=== PATIENT | female | born 1985 | race Caucasian/White ===

== ENCOUNTER 2020-09-07 10:07 | Outpatient (CLI) | payer OTHER, SELFPAY ==
[2020-09-07 10:50] LABS: Hematocrit 43.6 % (37.0-47.0); Hemoglobin 14.8 g/dL (12.0-15.0); Mean Corpuscular HGB Conc 33.9 g/dl (32-36); Mean Corpuscular Hemoglobin 28.1 pg (26-34); Mean Corpuscular Volume 82.7 fl (80-100); Mean Platelet Volume 10.9 fl (7.4-10.4); Platelet Count Result 287 k/mm3 (150-375); Red Blood Count 5.27 M/mm3 (4.2-5.4); Red Cell Distribution Width 12.5 % (11.5-14.5); White Blood Count 7.4 K/mm3 (4.5-10.0)
[2020-09-07 11:16] LABS: Alanine Aminotransferase 20 U/L (4-35); Albumin Level 4.4 g/dL (3.5-5.1); Alkaline Phosphatase 74 U/L (38-126); Anion Gap 7 mmol/L (8-16); Aspartate Amino Transferase 22 U/L (14-36); Bilirubin,Total 0.6 mg/dL (0.2-1.3); Blood Urea Nitrogen 17 mg/dL (7-17); Calcium 8.7 mg/dL (8.4-10.2); Carbon Dioxide 27 mmol/L (22-30); Chloride 104 mmol/L (98-107); Cholesterol 175 mg/dL (0-200); Estimated Glomerular Filt Rate > 60; Glucose 94 mg/dL (65-105); HDL Direct 37 mg/dL; Potassium 4.2 mmol/L (3.4-5.0); Sodium 138 mmol/L (137-145); Triglycerides 78 mg/dL (<150)
[2020-09-07 11:26] LABS: LDL Cholesterol Direct 110 mg/dL
== END 2020-09-07 10:08 | disposition home or self-care (01) ==
PROVIDERS: PCP Family Medicine; Visit Provider Physician Assistant
DX: R53.83 Other fatigue (principal); Z13.220 Encounter for screening for lipoid disorders
CPT/HCPCS: 36415; 80053; 80061; 85027

== ENCOUNTER 2020-10-29 15:38 | Outpatient (CLI) | payer OTHER, SELFPAY ==
[2020-11-05 11:06] LABS: Progesterone 5.2 ng/mL (***)
== END 2020-10-29 15:39 | disposition home or self-care (01) ==
LOC: ANHLAB 15:39
PROVIDERS: PCP Family Medicine; Visit Provider Obstetrics & Gynecology
DX: N91.2 Amenorrhea, unspecified (principal)
CPT/HCPCS: 36415; 84144; 84702

== ENCOUNTER 2020-10-31 15:08 | Outpatient (CLI) | payer OTHER, SELFPAY | END 2020-10-31 15:09 | disposition home or self-care (01) | LOC: ANHLAB 15:10 | PROVIDERS: PCP Family Medicine; Visit Provider Obstetrics & Gynecology | DX: N91.2 Amenorrhea, unspecified (principal) | CPT/HCPCS: 36415; 84702 ==

== ENCOUNTER 2020-11-04 15:22 | Outpatient (CLI) | payer OTHER, SELFPAY ==
--- NOTE | ~2020-11-04 | US_ITS ---
EXAMINATION: US OB <=14 wk fetus w TV DATE: 11/04/2020 16:16 INDICATION: Threatened . First trimester. TECHNIQUE: Real-time transabdominal and transvaginal pelvic ultrasound was performed. COMPARISON: None. FINDINGS: TRANSABDOMINAL ULTRASOUND: The uterus measures 9.6 x 5.9 x 5.2 cm. TRANSVAGINAL ULTRASOUND: There is an intrauterine gestational sac. The crown rump length measur es 5 mm, which correlates with an estimated gestational age of 6 weeks and 2 day(s). heart frida on is not identified by M-mode Doppler. There is a 3 mm cyst in the endometrial complex. There is a s mall nabothian cyst in the cervix. The ovaries are not visualized. There is no free fluid in the pelv is. IMPRESSION: 1. Single intrauterine with estimated date of delivery of 06/29/2021. Lack of visible heart motion may sometimes be normal at this size. Serial beta-hCGs are recommended. Reviewed, dictated and finalized at location A. T ATTENDANT IMPRESSION: 1. Single intrauterine with estimated date of delivery of 06/29/2021. Lack of visible heart motion may sometimes be normal at this size. Seria l beta-hCGs are recommended.
== END 2020-11-04 15:23 | disposition home or self-care (01) ==
PROVIDERS: PCP Family Medicine; Visit Provider Obstetrics & Gynecology
DX: O20.0 Threatened abortion (principal); Z3A.00 Weeks of gestation of pregnancy not specified
CPT/HCPCS: 76801; 76817

== ENCOUNTER 2020-11-15 07:41 | Outpatient (RCR) | payer OTHER, SELFPAY ==
[2020-11-12 12:25] LABS: Beta HCG Quantitative 273.61 mIU/ML
[2020-11-15] MEDS: RHO(D) IMMUNE GLOBULIN 300 MCG SYRINGE IM (12:40)
== END 2020-11-15 07:42 | disposition home or self-care (01) ==
LOC: ANHLAB 07:41
PROVIDERS: PCP Family Medicine; Visit Provider Obstetrics & Gynecology
DX: N91.2 Amenorrhea, unspecified (principal)
CPT/HCPCS: 36415; 84702; 85461; 90384; 96372; J2790

== ENCOUNTER 2020-11-25 09:30 | Outpatient (RCR) | payer OTHER, SELFPAY ==
--- NOTE | 2020-08-27 17:54 | PTOPEVAL ---
PHYSICAL THERAPY EVALUATION AND PLAN OF CARE Thank you for referring Jennifer Chi to [facility].? The patient is scheduled to be seen for therapy 1x/week for 8 weeks. Please review, sign, date and return this plan of care ROLANDO. I agree with and certify that the following plan of care is medically necessary. Referring Physician Date Evaluation Diagnosis left exploratory arthroscopy Onset 04/30/2020 Subjective Information removed some adhesions Query Text:As Reported By Patient/ laterally, removed a fat pad Family laterally, but otherwise found no cause for pain. She reports that initial injury was 4 years ago and care was delayed and she has been limping for the last years. Believes that the experience of the surgery made the pain worse/aggravated symptoms. Jennifer reports that now her hip and her back hurt and she is less active and she feels overall less toned. Reports frequent episodes of the left knee giving out and now it is throbbing. Self Report Pain Assessment Left Knee(s) Reported Pain Level 3 Pain Description Aching Pain Frequency Chronic,Continuous Other Pain Description weak Lowest Pain Intensity 2 Greatest Pain Intensity 7 Pain Aggravating Factors Stair Climbing,Walking,Weight Bearing/Standing Pain Score Pain Score 3: Self Report Interventions Used Interventions Used By Clinicians Exercise,Heat Pain Relief Interventions Used By Ice Patient Lower Extremity Range of Motion Knee Range of Motion Right Knee Flexion Range of Motion - Active 121 Knee Extension Range of Motion - Active 0 Query Text: Left Knee Flexion Range of Motion - Active 111 Knee Extension Range of Motion - Active 0 Query Text: Lower Extremity Muscle Strength Testing Hip Strength Right Hip Flexion Strength 5 Normal Hip Extension Strength 4 Good Hip Abduction Strength 4+ Good + Left Hip Flexion Strength 4+ Good + Hip Extension Strength 3+ Fair + Hip Abduction Strength 3 Fair Knee Strength Right Knee Flexion Strength 5 Normal Knee Extension Strength 5 Normal Left Knee Flexion Strength 4+ Good + Knee Extension Strength
--- NOTE | 2020-10-03 10:49 | PTOPEVAL ---
PHYSICAL THERAPY PLAN OF CARE UPDATE AND PROGRESS REPORT Thank you for referring Dillon Chi to [facility].? The patient is scheduled to be seen for therapy? 1x/week for 5 weeks. Please review, sign, date and return this plan of care ROLANDO. I agree with and certify that the following plan of care is medically necessary. Referring Physician Date Progress Diagnosis left exploratory arthroscopy Onset 04/30/2020 Subjective Information dillon reports that pain Query Text:As Reported By Patient/ symptoms are really about the Family same and she continues to feel as though the left knee is more . She does note that there is improved function in stair climbing and she is feeling more capable to perform exercises than she has in several years. Self Report Pain Assessment Left Knee(s) Reported Pain Level 4 Pain Description Aching Pain Frequency Chronic,Continuous Other Pain Description 'feels kind of again' Lowest Pain Intensity 2 Greatest Pain Intensity 7 Pain Aggravating Factors Stair Climbing,Walking,Weight Bearing/Standing Pain Score Pain Score 4: Self Report Interventions Used Interventions Used By Clinicians Exercise Lower Extremity Muscle Strength Testing Hip Strength Right Hip Flexion Strength 5 Normal Hip Extension Strength 4+ Good + Hip Abduction Strength 5 Normal Left Hip Flexion Strength 5 Normal Hip Extension Strength 4 Good Hip Abduction Strength 4+ Good + Knee Strength Right Knee Flexion Strength 5 Normal Knee Extension Strength 5 Normal Left Knee Flexion Strength 5 Normal Knee Extension Strength 5 Normal Knee Strength Comments pain illicited in knee during MMT Posture Posture Supine Position Pelvis Posture (R) Iliac Crest Superior Weight Distribution Weight Shifted Right Leg Length Discrepancy right LE appears shorter than left Knee Posture (L) Genu Recurvatum,(R) Genu Recurvatum Palpation trigger points noted to vastus lateralis and vastus medialis - improved compared to 5 weeks ago; severe trigger points noted to all glutes and anterior tibialis bilaterally Balance Assessment 5 Time Sit to Stand
--- NOTE | 2020-11-04 07:15 | PCPTNOTE ---
Patient called & cancelled scheduled appointment this date as she is having complications with .
--- NOTE | 2020-11-12 08:27 | PTOPEVAL ---
PHYSICAL THERAPY PLAN OF CARE UPDATE AND PROGRESS REPORT Thank you for referring Jennifer Chi to [facility].? The patient is scheduled to be seen for therapy? 1x/week for 4 weeks. Please review, sign, date and return this plan of care ROLANDO. I agree with and certify that the following plan of care is medically necessary. Referring Physician Date Progress Diagnosis left exploratory arthroscopy Onset 04/30/2020 Subjective Information Jennifer continues to report Query Text:As Reported By Patient/ overall functional improvement Family despite continued knee pain symptoms. She reports increased popping in the knee that is sometimes painful and sometimes not. She reports working on increased confidence in the knee the perform well. Self Report Pain Assessment Left Knee(s) Reported Pain Level 4 Pain Description Aching Pain Score Pain Score 4: Self Report Interventions Used Interventions Used By Clinicians Exercise Pain Relief Interventions Used By Exercise,Ice Patient Cervical and Lumbar Muscle Testing Lumbar Strength Upper Abdominal Strength 3 Fair Lower Abdominal Strength 3 Fair Lower Extremity Muscle Strength Testing Hip Strength Right Hip Flexion Strength 5 Normal Hip Extension Strength 5 Normal Hip Abduction Strength 5 Normal Left Hip Flexion Strength 5 Normal Hip Extension Strength 4+ Good + Hip Abduction Strength 5 Normal Knee Strength Right Knee Flexion Strength 5 Normal Knee Extension Strength 5 Normal Left Knee Flexion Strength 5 Normal Knee Extension Strength 5 Normal Knee Strength Comments continues to have discomfort in knee with MMT -single leg sit<>stand: able to perform independently with popping and discomfort in bilateral knees - apparent instability noted and patient notes she is trying to focus on using the correct muscle to perform task Muscle Length Testing Muscle Length Testing Chris Test Shortened Muscles Short (R) Iliopsoas,Short (L) Iliopsoas,Short (R) Rectus Femoris,Short (L) Rectus Femoris,Short (R) Ilial Tib Band Palpation
--- NOTE | 2020-11-26 09:39 | PCPTNOTE ---
This treatment is being continued on visit number [id number]. Please see documentation on both accounts to view progress. Completed interventions, outcomes, and problems have been marked as Inactive to facilitate the copying of the Care plan routine for recurring accounts.
== END 2020-11-25 23:59 | disposition home or self-care (01) ==
LOC: ANHPT 09:30
PROVIDERS: PCP Family Medicine
DX: Z48.89 Encounter for other specified surgical aftercare (principal); Z98.890 Other specified postprocedural states
CPT/HCPCS: 97110; 97140; 97161

== ENCOUNTER 2020-12-09 09:30 | Outpatient (RCR) | payer OTHER, SELFPAY ==
--- NOTE | 2020-11-26 09:39 | PCPTNOTE ---
The treatment documented on this account is a continuation of the treatment documented on visit number [id number]. Please see documentation on both accounts to view progress. The Plan of Care has been transitioned and updated within the new V#. I have addressed and agree with the discipline specific Problems, Interventions, and Goals for the current certification period. Completed interventions, outcomes, and problems have been marked as Inactive to facilitate the copying of the Care plan routine for recurring accounts.
--- NOTE | 2020-12-02 07:26 | PCPTNOTE ---
Patient called & cancelled scheduled appointment this date due to childcare issues.
--- NOTE | 2020-12-09 10:30 | PTOPEVAL ---
PHYSICAL THERAPY DISCHARGE Thank you for referring Jennifer Chi to [facility].? Please review, sign, date and return this plan of care ROLANDO. I agree with and certify that the following plan of care is medically necessary. Referring Physician Date DISCHARGE Diagnosis left exploratory arthroscopy Onset 04/30/2020 Subjective Information Jennifer continues to report Query Text:As Reported By Patient/ overall functional improvement Family despite continued knee pain symptoms. Reports continued increased popping and clicking in the knees. She reports feeling as though the knees do not want to straigthen. Self Report Pain Assessment Left Knee(s) Reported Pain Level 4 Pain Description Sharp,Shooting Pain Score Pain Score 4: Self Report Additional Pain Score Comments reports difficult straightening leg and it feels like the knee cap is preventing the knee from going straight; also c/o a pulling/ fatige type pain in the left lateral lower leg that she has had on and off since high school, but it seems to be interfering at this time Interventions Used Interventions Used By Clinicians Exercise Lower Extremity Muscle Strength Testing Hip Strength Left Hip Flexion Strength 5 Normal Hip Extension Strength 5 Normal Hip Abduction Strength 5 Normal Right Hip Flexion Strength 5 Normal Hip Extension Strength 5 Normal Hip Abduction Strength 5 Normal Knee Strength Right Knee Flexion Strength 5 Normal Knee Extension Strength 5 Normal Knee Strength Comments -minimal discomfort noted with knee MMT -single leg sit<>stand: progressing well; continue at home Left Knee Flexion Strength 5 Normal Knee Extension Strength 5 Normal Balance Assessment 5 Time Sit to Stand Time in Seconds 6.5 5 Time Sit to Stand Comments pain when straightening leg Query Text:Normative Data: If Greater and when descending Than 15 Seconds, 74% Increase Risk for Recurrent Falls PT Clinical Summary Jennifer is a 35 yo female presenting to outpatient physical therapy with chronic
== END 2020-12-09 11:54 | disposition home or self-care (01) ==
LOC: ANHPT 09:30
PROVIDERS: PCP Family Medicine
DX: Z48.89 Encounter for other specified surgical aftercare (principal); Z98.890 Other specified postprocedural states
CPT/HCPCS: 97110

== ENCOUNTER 2020-12-09 17:26 | Outpatient (CLI) | payer OTHER, SELFPAY ==
[2020-12-09 18:06] LABS: Beta HCG Quantitative < 2.39 mIU/ML
== END 2020-12-09 17:27 | disposition home or self-care (01) ==
LOC: ANHLAB 17:28
PROVIDERS: PCP Family Medicine; Visit Provider Obstetrics & Gynecology
DX: O03.9 Complete or unspecified spontaneous abortion without complication (principal); Z3A.00 Weeks of gestation of pregnancy not specified
CPT/HCPCS: 36415; 84702

== ENCOUNTER 2022-01-10 10:00 | Emergency (ER) | payer OTHER, SELFPAY ==
[2022-01-10 10:08] VITALS: BP 152/97; PULSE 66; RESP 16; TEMP 36.3; O2SAT 99
--- NOTE | 2022-01-10 10:29 | ED.GENADULT ---
HPI - General Adult General Chief complaint: Ear Stated complaint: pos strep Source: patient Mode of arrival: ambulatory Limitations: no limitations History of Present Illness HPI narrative: Patient presents for evaluation of a swollen uvula. She indicates she woke from sleep this morning she felt like she had phlegm in the back of her throat. She looked in the mirror and noticed her uvula was swollen. She gargled with some salt water and states that her symptoms have markedly improved. 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 She had Covid back in November of this year. She has been vaccinated for COVID. Her currently has similar symptoms. Denies any fever, chills, nausea, vomiting, respiratory symptoms. She has some mild bilateral otalgia. No additional complaints or concerns. Related Data Home Medications Medication Instructions Recorded Confirmed pediatric multivitamin no.28 1 tablet PO DAILY 08/12/20 01/10/22 Allergies Allergy/AdvReac Type Severity Reaction Status Date / Time nickel Allergy Mild Rash Verified 01/10/22 10:06 Review of Systems Review of Systems: CONSTITUTIONAL: Denies fever, chills, or sweats. EYES: Denies visual changes, redness, or discharge. ENT: Reports sore throat, swelling of uvula, and mild bilateral otalgia. Denies rhinorrhea, congestion CARDIOVASCULAR: Denies chest pain, palpitations, or edema. RESPIRATORY: Denies cough or dyspnea. GASTROINTESTINAL: Denies abdominal pain, nausea, vomiting, or diarrhea. GENITOURINARY: Denies dysuria or hematuria. SKIN: Denies rash or itching. MUSCULOSKELETAL: Denies back pain, joint pain, or myalgia. NEUROLOGIC: Denies headache, numbness, dizziness, or weakness. PSYCHIATRIC: Denies anxiety or depression. [facility] Past Medical History Medical History Acid reflux Anxiety Depression Hypothyroidism Knee arthropathy Migraines Surgical History Surgical History History of delivery History of surgical removal of ganglion cyst S/P cholecystectomy Family History Family History Grandparent Carcinoma of colon Diabetes mellitus Sibling Hypertension Father ALS (amyotrophic lateral sclerosis) Social History Social History Smoking status: Never smoker Alcohol intake: current Drinks per week: 1 Substance use: current Substance use type: marijuana Other substance usage details: rarely Living arrangements: with family Additional occupation/education comments: RN Gender identity (if verbalized by the patient): Female Exam Narrative: GENERAL: Well-appearing, well-nourished, and in no acute distress. HEAD: Normocephalic, atraumatic. EYES: PERRLA and EOMI. ENT: Nares clear, no rhinorrhea or epistaxis. Mucous membranes moist. Oropharynx without tonsillar hypertrophy exudate or other lesions. There is some posterior pharyngeal erythema. Uvula is edematous. Bilateral TMs pearly cates nonbulging NECK: Supple. No adenopathy or masses. No carotid bruits or JVD CHEST: Clear to auscultation. No respiratory distress. No wheezes rales or rhonchi HEART: Regular rate and rhythm. No murmur heard. Normal peripheral pulses. ABDOMEN: Soft, nontender, nondistended, normal active bowel sounds. EXTREMITIES: Normal range of motion. No edema. SKIN: Warm, dry, no rash. NEURO: No focal deficits. Alert and oriented x3. PSYCH: Normal mood and affect. Course Course Emergency Course: This is a 36-year-old female who present with complaints of swelling to her uvula with some associated pain. On exam, her uvula is edematous. There is no asymmetry of tonsils to suggest [employer]. Strep was negative. She was given oral decadron while here for swelling. Will treat with PCN as of
== END 2022-01-10 11:10 | disposition home or self-care (01) ==
PROVIDERS: Emergency Provider Nurse Practitioner; PCP Family Medicine
DX: K12.2 Cellulitis and abscess of mouth (principal); K21.9 Gastro-esophageal reflux disease without esophagitis; E03.9 Hypothyroidism, unspecified; F41.9 Anxiety disorder, unspecified; F32.A Depression, unspecified
CPT/HCPCS: 87081; 87880; 99213; G0463; J1100

== ENCOUNTER 2022-09-03 16:35 | Emergency (ER) | payer OTHER, SELFPAY ==
--- NOTE | ~2022-09-03 | XR_ITS ---
EXAMINATION: XR chest 2V DATE: 09/03/2022 17:30 INDICATION: Midsternal chest pain and 3 weeks of cough TECHNIQUE: PA and lateral views of the chest were obtained. COMPARISON: None FINDINGS: The lungs are clear with no focal airspace opacities, pulmonary edema, pleural effusion or pneumothor ax. The cardiomediastinal silhouette is normal. Mild to moderate thoracic spondylosis. IMPRESSION: 1. No acute cardiopulmonary disease. Reviewed, dictated and finalized at location B.
--- NOTE | 2022-09-03 16:37 | ECG_ITS ---
Measurements Intervals [place] Rate: 80 P: 58 TX: 148 QRS: -38 QRSD: 105 T: 54 QT: 353 QTc: 408 Interpretive Statements SINUS RHYTHM FREQUENT VENTRICULAR PREMATURE COMPLEXES LEFT AXIS DEVIATION INCOMPLETE RIGHT BUNDLE BRANCH BLOCK BORDERLINE R WAVE PROGRESSION, ANTERIOR LEADS ABNORMAL ECG NO PREVIOUS ECG AVAILABLE FOR COMPARISON Electronically Signed On 09-03-2022 19:04:40 CDT by Jordi Scanlon D.O.
[2022-09-03 17:06] VITALS: PULSE 84
[2022-09-03 17:07] VITALS: BP 177/86; PULSE 88; RESP 14; TEMP 36.5; O2SAT 98
[2022-09-03 17:19] LABS: Basophils Absolute Auto 0.1 K/mm3 (0.0-0.1); Basophils Percent Auto 0.6 % (0.2-1.2); Eosinophils Absolute Auto 0.1 K/mm3 (0-0.3); Hematocrit 46.9 % (37.0-47.0); Hemoglobin 15.5 g/dL (12.0-15.0); Immature Granulocyte Absolute 0.03 K/mm3 (0.00-0.031); Immature Granulocyte Percent A 0.3 % (0-0.5); Lymphocytes Absolute Auto 3.59 K/mm3 (0.9-3.2); Lymphocytes Percent Auto 31.1 % (18.3-44.2); Mean Corpuscular Hemoglobin 27.4 pg (26-34); Mean Platelet Volume 10.9 fl (7.4-10.4); Monocytes Absolute Auto 0.6 K/mm3 (0.1-0.6); Monocytes Percent Auto 5.1 % (2.6-8.5); Neutrophils Absolute Auto 7.2 K/mm3 (1.3-6.7); Neutrophils Percent Auto 61.9 % (45.5-73.1); Platelet Count Result 362 k/mm3 (150-375); Red Blood Count 5.65 M/mm3 (4.2-5.4); Red Cell Distribution Width 12.7 % (11.5-14.5); White Blood Count 11.6 K/mm3 (4.5-10.0)
[2022-09-03 17:28] VITALS: BP 152/73; PULSE 94; RESP 12; O2SAT 100
[2022-09-03 17:28] LABS: Alanine Aminotransferase 24 U/L (6-35); Albumin Level 4.8 g/dL (3.5-5.1); Alkaline Phosphatase 87 U/L (38-126); Anion Gap 14 mmol/L (8-16); Aspartate Amino Transferase 25 U/L (14-36); Bilirubin,Total 0.4 mg/dL (0.2-1.3); Blood Urea Nitrogen 18 mg/dL (7-17); Calcium 8.7 mg/dL (8.4-10.2); Carbon Dioxide 25 mmol/L (22-30); Chloride 100 mmol/L (98-107); Estimated CRCL calculation 93 ml/min; Estimated Glomerular Filt Rate > 60; Glucose 93 mg/dL (65-110); Lipase 113 U/L (23-300); Potassium 3.8 mmol/L (3.4-5.0); Sodium 139 mmol/L (137-145)
[2022-09-03 17:31] LABS: Partial Thromboplastin Time 29.6 SECONDS (22.3-36.8); Prothrombin Time 12.7 Seconds (11.1-14.7)
[2022-09-03 17:39] LABS: Troponin I < 0.012 ng/mL (0.000-0.034)
[2022-09-03 17:45] VITALS: BP 162/79; PULSE 86; RESP 14; O2SAT 98
--- NOTE | 2022-09-03 17:46 | ED.CHESTPAIN ---
HPI - Chest Pain General Chief Complaint: Chest Pain Stated Complaint: chest pain Time Seen by Provider: 09/03/22 17:30 Source: patient Mode of arrival: wheelchair Limitations: no limitations History of Present Illness HPI narrative: Presents c/o midsternal chest pain that has been intermittent since this afternoon. Reports hx freq PVC but has never had sx before. URI x 3 weeks and has been taking Sudafed, Zyrtec and recently finished Z-Pack. Denies fever or other sx at this time. Currently denies chest pain or other sx. States feels fine. Related Data Allergies Allergy/AdvReac Type Severity Reaction Status Date / Time nickel Allergy Mild Rash Verified 08/25/22 13:36 Review of Systems Review of Systems: CONSTITUTIONAL: Denies fever, chills, or sweats. EYES: Denies visual changes, redness, or discharge. ENT: Denies rhinorrhea, congestion, sore throat, or otalgia. CARDIOVASCULAR: Intermittent chest pain, frequent PVC. RESPIRATORY: Denies cough or dyspnea. GASTROINTESTINAL: Denies abdominal pain, nausea, vomiting, or diarrhea. GENITOURINARY: Denies dysuria or hematuria. SKIN: Denies rash or itching. MUSCULOSKELETAL: Denies back pain, joint pain, or myalgia. NEUROLOGIC: Denies headache, numbness, or weakness. PSYCHIATRIC: Denies anxiety or depression. [facility] Past Medical History Medical History Acid reflux Anxiety Depression Hypothyroidism Knee arthropathy Migraines Surgical History Surgical History History of delivery History of surgical removal of ganglion cyst S/P cholecystectomy Family History Family History Grandparent Carcinoma of colon Diabetes mellitus Sibling Hypertension Father ALS (amyotrophic lateral sclerosis) Social History Social History Smoking status: Never smoker Alcohol intake: current Drinks per week: 1 Substance use: current Substance use type: marijuana Other substance usage details: rarely Additional occupation/education comments: RN Gender identity (if verbalized by the patient): Female Exam Narrative: GENERAL: Well-appearing, well-nourished, and in no acute distress. HEAD: Normocephalic, atraumatic. EYES: PERRLA and EOMI. ENT: Nares clear, no rhinorrhea or epistaxis. Mucous membranes moist. NECK: Supple. CHEST: Clear to auscultation. No respiratory distress. HEART: Regular rate and rhythm with frequent unifocal PVCs. No murmur heard. Normal peripheral pulses. ABDOMEN: Soft, nontender, nondistended, normal active bowel sounds. EXTREMITIES: Normal range of motion. No edema. SKIN: Warm, dry, no rash. NEURO: No focal deficits. Alert and oriented x3. PSYCH: Normal mood and affect. Course Vital Signs Vital signs: Vital Signs Temperature 36.5 C 09/03/22 17:07 Pulse Rate 88 09/03/22 17:07 Respiratory Rate 14 09/03/22 17:07 Blood Pressure 177/86 H 09/03/22 17:07 Pulse Oximetry 98 09/03/22 17:07 Oxygen Delivery Room Air 09/03/22 17:07 Temperature 36.5 C 09/03/22 17:07 Pulse Rate 88 09/03/22 17:07 Respiratory Rate 14 09/03/22 17:07 Blood Pressure 177/86 H 09/03/22 17:07 Pulse Oximetry 98 09/03/22 17:07 Oxygen Delivery Room Air 09/03/22 17:07 MDM - Chest Pain Lab Data Result diagrams: 09/03/22 16:59 09/03/22 16:59 Labs: Lab Results 09/03/22 09/03/22 09/03/22 Range/Units 16:59 16:59 16:59 WBC 11.6 H (4.5-10.0) K/mm3 RBC 5.65 H (4.2-5.4) M/mm3 Hgb 15.5 H (12.0-15.0) g/dL Hct 46.9 (37.0-47.0) % MCV 83.0 (80-100) fl MCH 27.4 (26-34) pg MCHC 33.0 (32-36) g/dl RDW 12.7 (11.5-14.5) % Plt Count 362 (150-375) k/mm3 MPV 10.9 H (7.4-10.4) fl Immature Gran % (Auto) 0.3 (0-0.5) % Neut % (Au
[2022-09-03 18:00] VITALS: BP 176/86; PULSE 82; RESP 14; O2SAT 98
--- NOTE | 2022-09-03 18:05 | PC.NURSE ---
Per ERP via verbal order readback do not administer aspirin.
== END 2022-09-03 18:34 | disposition home or self-care (01) ==
PROVIDERS: Emergency Medicine; Emergency Provider Nurse Practitioner; PCP Family Medicine
DX: R07.89 Other chest pain (principal); I49.3 Ventricular premature depolarization; E03.9 Hypothyroidism, unspecified
CPT/HCPCS: 36415; 71046; 80053; 83690; 84484; 85025; 85610; 85730; 93005; 99284

== ENCOUNTER 2022-10-14 08:13 | Outpatient (CLI) | payer OTHER, SELFPAY ==
--- NOTE | 2022-11-05 16:13 | WPDHOMESLEEP ---
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 She currently is having worsening problems with bigeminy,, shortness of breath, fatigue and dizziness. Both parents had sleep apnea. She occasionally awakens from sleep feeling short of breath. She occasionally awakens at night with heartburn, belching or coughing. She constantly snores and it is loud enough that others complain about it. Her breathing is more difficult at night when she has a cold. She occasionally wakes up gasping for breath at night. She does not have breathing problems at night reported to her by others. She occasionally sweats excessively at night. She constantly notices her heart pounding or beating irregularly at night. She rarely falls asleep during the day, never falls asleep involuntarily or while driving. She does not have loss of muscle tone with strong emotion. She does not have daytime difficulties due to excessive sleepiness. She rarely feels paralyzed on waking or falling asleep. She rarely has vivid dreamlike scenes upon awakening falling asleep. She does not feel afraid to go to sleep. She occasionally has nightmares. She occasionally remembers her dreams. She occasionally has racing thoughts. She frequently feels sad or depressed. She occasionally has anxiety. She constantly has muscular tension. She frequently notices parts of her body jerking. She occasionally kicks at night. She frequently has crawling and aching feelings in her legs as well as leg pain during the night. She rarely has morning jaw pain. She occasionally grinds her teeth during sleep. She occasionally is bothered by pain during the day. She is not awakened by pain at night. She frequently wakes up feeling stiff in the morning with sore achy muscles and pain in the neck and spine. she has fatigue, headaches, and memory problems. Normal bedtime is between 10:00 p.m. and 11:00 p.m., falling asleep within 15 minutes, typically waking twice at night to use the bathroom or reposition and return to sleep. She is able to return to sleep within 10 minutes. Her normal wake time is 6:15 a.m. on work days. On weekends, bedtime is the same, 10-11 p.m. with a wake time of 8:30 a.m., and she benefits from the extra 1 or 2 hours of recovery sleep. She estimates getting 7-8 hours of sleep at night. She does not take naps. A short nap lasting 10 or 15 minutes is not refreshing. She is usually drowsy in the morning for 1 hour or less. She feels better in the evening compared to other times of day. Her sleep is often disturbed by waking with a dry mouth. She takes Xanax 1 mg rarely for anxiety/PTSD. Habits: Never smoked tobacco. She consumes caffeine daily, alcohol less than 1 drink daily may be 2 or drinks in a week. She uses recreational marijuana on occasion. [facility] Past Medical History Medical History Abnormal ECG Acid reflux Anxiety Depression Hypothyroidism Knee arthropathy Migraines Surgical History Surgical History History of delivery History of surgical removal of ganglion cyst S/P cholecystectomy Family History Family History Grandparent Carcinoma of colon Diabetes mellitus Sibling Hypertension Father ALS (amyotrophic lateral sclerosis) Social History Social History Smoking status: Never smoker Second hand tobacco smoke expos
[2022-11-05 16:39] VITALS: BMI 55.7
== END 2022-10-20 10:49 | disposition home or self-care (01) ==
LOC: ANHCSM 08:15
PROVIDERS: PCP Family Medicine; Visit Provider Internal Medicine Cardiovascular Disease
DX: G47.10 Hypersomnia, unspecified (principal); G47.33 Obstructive sleep apnea (adult) (pediatric)
CPT/HCPCS: 95800

== ENCOUNTER 2022-10-16 08:28 | Outpatient (CLI) | payer OTHER, SELFPAY ==
[2022-10-16] MEDS: PERFLUTREN LIPID MICROSPHERES 1.5 ML VIAL DILUTED TO 10 ML TOTAL VOLUME IV PUSH (08:30)
--- NOTE | 2022-10-16 08:38 | EST_ITS ---
Patient Info Name: Jennifer Chi Age: 37 years : 1985 Gender: Female Ht: 62 in Wt: 310 lbs BSA: 2.58 m2 Exam Date: 10/16/2022 9:05 AM Exam Location: [facility] Patient Status: Outpatient Admit Date: 10/16/2022 Staff Ordering Physician: Becky Wynn DO Contract Specialist: Samantha Sloan RDCS Attending Provider: BECKY WYNN DO Referring Physician: Capo CRUM; Exam Type: CA stress echo w contrast Study Info Indications I47.2 - Ventricular tachycardia Contrast administered to opacify the left ventricle and to improve the deliniation of the left ventricular endocardial borders. Treadmill exercise stress echocardiogram is performed. Contrast/Agitated Saline Contrast/Ag. Saline: Definity Amount: 4.00 ml Administered By: Samantha Sloan [facility] New IV Access: Dorsum of Hand and Right Site Condition: No extravasation and IV removed Summary 1. 1. Negative Manfred exercise stress test for ischemic ST changes by ECG criteria. 2. 2. Reduced functional capacity, achieving 7 METs of workload. 3. 3. Frequent baseline PVC's that improved near peak HR. 4. 4. Appropriate HR response to exercise. 5. 5. Appropriate HR recovery at 1 minute post exercise. 6. 6. Negative stress echocardiogram for ischemia by wall motion analysis. 7. 7. Patient informed of the above results. Stress Echo Findings Left Ventricle Appropriate LV endocardial thickening with systole. Appropriate augmentation of contractility with systole. No wall motion abnormality. Definity injected. Left Ventricle Preserved LV systolic function, no wall motion abnormalities. Definity injected to enhance endocardial definition. Protocol: Manfred Stress ECG Details Stage: REST Duration (min): 1 min : 17 sec Speed (mph): 0.0 Grade (%): 0 HR (bpm): 77 SBP (mmHg): 120 DBP (mmHg): 57 METS: --- Stage: REST Duration (min): 25 min : 49 sec Speed (mph): 0.0 Grade (%): 0 HR (bpm): 78 SBP (mmHg): 120 DBP (mmHg): 57 METS: --- Stage: STAGE 1 Duration (min): 1 min : 0 sec Speed (mph): 1.7 Grade (%): 10 HR (bpm): 100 SBP (mmHg): 120 DBP (mmHg): 57 METS: --- Stage: STAGE 1 Duration (min): 2 min : 0 sec Speed (mph): 1.7 Grade (%): 10 HR (bpm): 113 SBP (mmHg): 120 DBP (mmHg): 57 METS: --- Stage: STAGE 1 Duration (min): 3 min : 0 sec Speed (mph): 1.7 Grade (%): 10 HR (bpm): 126 SBP (mmHg): 177 DBP (mmHg): 74 METS: --- Stage: STAGE 2 Duration (min): 1 min : 0 sec Speed (mph): 2.5 Grade (%): 12 HR (bpm): 134 SBP (mmHg): 177 DBP (mmHg): 74 METS: --- Stage: STAGE 2 Duration (min): 2 min : 0 sec Speed (mph): 2.5 Grade (%): 12 HR (bpm): 145 SBP (mmHg): 182 DBP (mmHg): 107 METS: --- Stage: STAGE 2 Duration (min): 3 min : 0 sec Speed (mph): 2.5 Grade (%): 12 HR (bpm): 150 SBP (mmHg): 182 DBP (mmHg): 107 METS: --- Stage: STAGE 3 Duration (min): 0 min : 1 sec Speed (mph): 0.0 Grade (
--- NOTE | 2022-10-16 09:38 | ECHO_ITS ---
Patient Info Name: Jennifer Chi Age: 37 years : 1985 Gender: Female Ht: 62 in Wt: 310 lbs BSA: 2.58 m2 HR: 95 bpm BP: 120 / 57 mmHg Technical Quality: Fair Exam Date: 10/16/2022 9:39 AM Exam Location: [facility] Patient Status: Outpatient Admit Date: 10/16/2022 Staff Ordering Physician: Jordi Scanlon DO Fumigator And Sterilizer: Samantha Sloan RDCS Attending Provider: Jordi Scanlon DO Referring Physician: Capo CRUM; Exam Type: CA echo dop color flow w con Study Info Indications I47.2 - Ventricular tachycardia Complete two-dimensional, color flow and Doppler transthoracic echocardiogram is performed with contrast to opacify the left ventricle and to improve the deliniation of the left ventricle endocardial borders. Contrast/Agitated Saline Contrast/Ag. Saline: Definity Amount: 1.00 ml Administered By: Samantha Sloan [facility] Existing IV Access: Yes IV Access Condition: patent with no signs of infiltration Summary 1. Left ventricular chamber dimension is mildly enlarged. 2. Definity contrast administered improved wall motion interpretation. 3. Left ventricular systolic function is normal, estimated at 55-60%. 4. The left ventricular diastolic function is normal. 5. Ee' 4 is not elevated. 6. No pulmonary hypertension, estimated pulmonary arterial systolic pressure is 38 mmHg. Left Ventricle Ee' 4 is not elevated. Definity contrast administered improved wall motion interpretation. Left ventricular chamber dimension is mildly enlarged. Left ventricular systolic function is normal, estimated at 55-60%. The left ventricular diastolic function is normal. Right Ventricle Right ventricular chamber dimension is normal. Right ventricular systolic function is normal. Left Atria Left atrial chamber dimension is normal. Right Atria Right atrial chamber dimension is normal. Aortic Valve The aortic valve is probable trileaflet. There is no aortic valve stenosis. There is no aortic valve regurgitation. Pulmonic Valve There is no pulmonic regurgitation. Mitral Valve There is no mitral valve stenosis. There is no mitral valve regurgitation. Tricuspid Valve There is no tricuspid valve regurgitation. No pulmonary hypertension, estimated pulmonary arterial systolic pressure is 38 mmHg. Pericardium/Pleural There is no pericardial effusion. Inferior Vena Cava Normal inferior vena cava with >50% collapse upon inspiration consistent with normal right atrial pressure, 5 mmHg. Aorta The aortic root size at the sinus of Valsalva is normal. Left Ventricular Outflow Tract Name Value Normal LVOT 2D LVOT Diameter 2.08 cm LVOT Doppler LVOT Peak Gradient 8 mmHg LVOT Mean Gradient 4 mmHg LVOT VTI 24.63 cm LVOT VTI/AV VTI Ratio 0.79 LVOT Stroke Volume 83.50 ml LVOT CO 19.22 l/min LVOT CI 7.46 L/min/m2 Pulmonic Valve ------
== END 2022-10-16 08:29 | disposition home or self-care (01) ==
PROVIDERS: PCP Family Medicine; Visit Provider Internal Medicine Cardiovascular Disease
DX: R00.2 Palpitations (principal)
CPT/HCPCS: 93351; C8929; C8930; Q9957

== ENCOUNTER 2023-04-22 11:08 | Outpatient (CLI) | payer OTHER, SELFPAY ==
[2023-04-22 11:27] LABS: Hematocrit 43.8 % (37.0-47.0); Hemoglobin 14.6 g/dL (12.0-15.0); Mean Corpuscular HGB Conc 33.3 g/dl (32-36); Mean Corpuscular Hemoglobin 27.7 pg (26-34); Platelet Count Result 273 k/mm3 (150-375); Red Blood Count 5.28 M/mm3 (4.2-5.4); Red Cell Distribution Width 13.4 % (11.5-14.5); White Blood Count 7.1 K/mm3 (4.5-10.0)
[2023-04-22 12:02] LABS: Alanine Aminotransferase 37 U/L (6-35); Albumin Level 4.3 g/dL (3.5-5.1); Alkaline Phosphatase 70 U/L (38-126); Anion Gap 6 mmol/L (8-16); Aspartate Amino Transferase 28 U/L (14-36); Bilirubin,Total 0.8 mg/dL (0.2-1.3); Blood Urea Nitrogen 10 mg/dL (7-17); Calcium 8.4 mg/dL (8.4-10.2); Carbon Dioxide 26 mmol/L (22-30); Chloride 105 mmol/L (98-107); Cholesterol 173 mg/dL (0-200); Estimated Glomerular Filt Rate > 60; Glucose 97 mg/dL (65-110); HDL Direct 38 mg/dL; Potassium 4.6 mmol/L (3.4-5.0); Sodium 137 mmol/L (137-145); Triglycerides 98 mg/dL (<150)
[2023-04-22 12:39] LABS: LDL Cholesterol Direct 113 mg/dL
[2023-04-22 12:55] LABS: Free T4 Free Thyroxine 0.87 ng/mL (0.78-2.19)
[2023-04-27 00:46] LABS: Vitamin D 1,25 (OH)2 Total 38 pg/mL (18-72); Vitamin D2 1,25 (OH)2 19 pg/mL; Vitamin D3 1,25 (OH)2 19 pg/mL
== END 2023-04-22 11:09 | disposition home or self-care (01) ==
LOC: ANHLAB 11:09
PROVIDERS: PCP Family Medicine; Visit Provider Physician Assistant
DX: Z13.220 Encounter for screening for lipoid disorders (principal); E53.8 Deficiency of other specified B group vitamins; E55.9 Vitamin D deficiency, unspecified; Z13.1 Encounter for screening for diabetes mellitus; R53.83 Other fatigue; D64.9 Anemia, unspecified
CPT/HCPCS: 36415; 80053; 80061; 82607; 82652; 84439; 84443; 85027

== ENCOUNTER 2024-04-13 10:03 | Outpatient (CLI) | payer OTHER, SELFPAY ==
[2024-04-13 10:56] LABS: Basophils Percent Auto 0.5 % (0.2-1.2); Eosinophils Absolute Auto 0.2 K/mm3 (0-0.3); Eosinophils Percent Auto 2.5 % (0-4.4); Hematocrit 45.8 % (37.0-47.0); Immature Granulocyte Absolute 0.01 K/mm3 (0.00-0.031); Immature Granulocyte Percent A 0.1 % (0-0.5); Lymphocytes Absolute Auto 2.38 K/mm3 (0.9-3.2); Lymphocytes Percent Auto 30.1 % (18.3-44.2); Mean Corpuscular HGB Conc 32.8 g/dl (32-36); Mean Corpuscular Hemoglobin 27.8 pg (26-34); Mean Platelet Volume 10.9 fl (7.4-10.4); Monocytes Absolute Auto 0.4 K/mm3 (0.1-0.6); Monocytes Percent Auto 4.4 % (2.6-8.5); Neutrophils Absolute Auto 4.9 K/mm3 (1.3-6.7); Neutrophils Percent Auto 62.4 % (45.5-73.1); Platelet Count Result 288 k/mm3 (150-375); Red Blood Count 5.39 M/mm3 (4.2-5.4); Red Cell Distribution Width 13.4 % (11.5-14.5); White Blood Count 7.9 K/mm3 (4.5-10.0)
[2024-04-13 11:11] LABS: Alanine Aminotransferase 22 U/L (6-35); Albumin Level 4.8 g/dL (3.5-5.1); Alkaline Phosphatase 75 U/L (38-126); Anion Gap 8 mmol/L (4-12); Aspartate Amino Transferase 22 U/L (14-36); Bilirubin,Total 0.7 mg/dL (0.2-1.3); Blood Urea Nitrogen 15 mg/dL (7-17); Carbon Dioxide 27 mmol/L (22-30); Chloride 105 mmol/L (98-107); Estimated Glomerular Filt Rate > 60; Glucose 83 mg/dL (65-110); Potassium 3.9 mmol/L (3.4-5.0); Sodium 140 mmol/L (137-145)
[2024-04-13 11:58] LABS: Free T4 Free Thyroxine 0.77 ng/mL (0.78-2.19)
[2024-04-13 12:08] LABS: Hemoglobin A1C 5.3 % (<5.7)
[2024-04-13 12:10] LABS: Folic Acid > 20.0 ng/mL (2.76->20)
== END 2024-04-13 10:04 | disposition home or self-care (01) ==
LOC: ANHLAB 10:05
PROVIDERS: PCP Family Medicine; Visit Provider Student in an Organized Health Care Education/Training Program
DX: R41.3 Other amnesia (principal); E66.9 Obesity, unspecified
CPT/HCPCS: 36415; 80053; 82607; 82746; 83036; 84439; 84443; 85025